=== PATIENT | male | born 1935 | race Caucasian/White ===

== ENCOUNTER 2018-01-05 10:41 | Day surgery (SDC) | payer MEDICARE ==
[2018-01-05] VITALS (8 sets, daily range): BP systolic 97–160; BP diastolic 54–96; PULSE 74–84; RESP 18; TEMP 97.6–98; O2SAT 91–95
[~2018-01-05] VITALS: Ht 177.8 cm; Wt 96.3 kg
[2018-01-05] MEDS ORDERED: IOHEXOL 350 MG/ML 100 ML BTL (for Cath Lab) OTHER ONE (10:42)
[2018-01-05] MEDS ORDERED: MULTTAB67 PO (11:38)
[2018-01-05] MEDS ORDERED: OMEP20TA93 PO (11:38)
[2018-01-05] MEDS ORDERED: CLOTR1%T TOPICAL (11:38)
[2018-01-05] MEDS ORDERED: METR0.7512 TOPICAL (11:38)
[2018-01-05] MEDS ORDERED: SYMB160A INH (11:38)
[2018-01-05] MEDS ORDERED: METO25TA3 PO (11:38)
[2018-01-05] MEDS ORDERED: LIPI80TA PO (11:38)
[2018-01-05] MEDS ORDERED: TYLE325T PO (11:38)
[2018-01-05] MEDS ORDERED: NITR1SUB3 SL (11:38)
[2018-01-05] MEDS ORDERED: GLUC100013 (11:38)
[2018-01-05] MEDS ORDERED: BRIL90TA PO (11:38)
[2018-01-05] MEDS ORDERED: ASPI-516 CHEW (11:38)
[2018-01-05] MEDS ORDERED: LISI20TA PO (11:38)
[2018-01-05 11:39] LABS: AUTOMATED NEUTROPHIL # 7.3 TH/MM3 (1.8-7.7); BASOPHIL # 0.1 TH/MM3 (0-0.2); BASOPHIL % 1.4 % (0.0-2.0); EOSINOPHIL # 0.1 TH/MM3 (0-0.4); HEMATOCRIT 43.7 % (39.0-51.0); HEMOGLOBIN 14.6 GM/DL (13.0-17.0); LYMPHOCYTE # 1.1 TH/MM3 (1.0-4.8); MEAN CELL VOLUME 86.8 FL (80.0-100.0); MEAN CORPUSCULAR HGB CONC 33.4 % (32.0-36.0); MEAN PLATELET VOLUME 8.6 FL (7.0-11.0); MONO % 10.1 % (0.0-8.0); NEUT % 76.5 % (16.0-70.0); PLATELET COUNT 192 TH/MM3 (150-450); RED BLOOD COUNT 5.04 MIL/MM3 (4.50-5.90); RED CELL DISTRIBUTION WIDTH 15.4 % (11.6-17.2); WHITE BLOOD COUNT 9.5 TH/MM3 (4.0-11.0)
[2018-01-05 11:43] LABS: PROTHROMBIN TIME - PATIENT 10.5 SEC (9.8-11.6)
[2018-01-05] MEDS ORDERED: NS 1000P @30 MLS/HR (KVO) IV SCH (12:00)
[2018-01-05 12:12] LABS: BICARBONATE 24.1 MEQ/L (21.0-32.0); CALCIUM 9.7 MG/DL (8.5-10.1); CREATININE 1.25 MG/DL (0.60-1.30)
[2018-01-05 12:45] LABS: OVALOCYTES 1+ (NORMAL)
[2018-01-05 13:28] LABS: BICARBONATE 25.8 MEQ/L (21.0-32.0); CALCIUM 9.3 MG/DL (8.5-10.1); CREATININE 1.1 MG/DL (0.60-1.30)
--- NOTE | 2018-01-05 13:34 | EKG ---
Date Performed: 01/05/2018 Time Performed: 11:22:08 PTAGE: 82 years EKG: Sinus rhythm . Inferior and anterior T wave changes are nonspecific Borderline ECG NO PREVIOUS TRACING DOCTOR: Octavio Arambula Interpretating Date/Time 01/05/2018 13:33:18
[2018-01-05] MEDS ORDERED: MIDAZOLAM HCL 2 MG/2 ML VIAL ONE ×2 (15:38→16:24)
[2018-01-05] MEDS ORDERED: TICAGRELOR 90 MG TAB PO ONE (17:18)
[2018-01-05] MEDS ORDERED: SODIUM CHLOR 0.9% 1000 ML INJ 1,000 ML IV SCH (17:32)
--- NOTE | 2018-01-05 17:35 | CATHPROC ---
[facility] HIS Report Study Information Study Number Admission Scheduled Start Study Start [id number] Jan 05 2018 10:41AM 01/05/2018 Jan 05 2018 3:19PM Study Type [place] Service Left/Possible PCI Cardiac Catheterization Admit Source Facility Department Other [facility] Physician and Clinical Staff Initial Zina Gu Overhead Garage Door Hanger Makenna Hale,MARTA Overhead Garage Door HangerGabrielle Quinonez,MARTA Recorder Piper Canseco,RT(R) Scrub Maddison Herrera,RT(R) X-Ray Stacia Pike ,RT(R) Procedures Performed Procedure Location (Site) Vessel Name Angiogram LV LV Ventricle Coronary Angiograms LCA Left Coronary Coronary Angiograms RCA Right Coronary Drug Eluting Inflatio RCA Mid Right Coronary L Heart Cath PTCA RCA Mid Right Coronary PTCA ADD ON'S Wire insertion Fem Art (right) Femoral Art Equipment Time Chipper Operator Description Size Mfg Part Number Used/Scraped WIRE, BALANCE MIDDLEWEIGHT [id number] 16:14 [employer] 190CM Used 190CM *[id number] WIRE, [place] TORQUE ALLSTAR [id number] 16:26 [employer] 190CM Used 190CM *[id number] TRANSDUCER, TRUWAVE [id number] 15:44 REYES VELAZQUEZ * Used W/STOCKCOCK *[id number] *[id number] [phone] *[id number] *[id number] [id number] *[id number] 17:15 DAIG/ST. KATELYN MEDICAL ANGIOSEAL, FR6 VIP FR 6 Used *[id number] 15:44 MEDLINE INDUSTRIES PACK, CCL CUSTOM * Used *[id number] 15:44 MEDLINE PACER PEN, SKIN DUAL W/ RULER * Used *[id number] 15:43 MEDTRONIC AR MOD DXTERITY CATHETER FR 5 [id number] Used [id number] 16:23 MEDTRONIC BALLOON, 1.5 X 12MM EUPHORA 12MM Used *[id number] 16:18 MEDTRONIC BALLOON, 2.5 X 15MM EUPHORA 15MM Used *[id number] 16:49 MEDTRONIC BALLOON, 3.0 X 15MM EUPHORA 15MM Used *[id number] BALLOON, 3.5 X 15MM NC [id number] 17:04 MEDTRONIC 15MM Used EUPHORA *[id number] 16:47 MEDTRONIC STENT, 3.5 38MM HUMPHREY 3.5 38MM [id number] Used [id number] 16:15 Jewel Toned MEDICAL 30 WINNIE INDEFLATOR Used *[id number] 16:14 Jewel Toned MEDICAL SHEATH, FR6.5 PRELUDE 11CM FR 6.5 038ACT Used *[id number] 15:44 [employer] WIRE, 3MMJ .035 180CM 180CM Used *[id number] PROBE COVER, STERILE [id number] 15:44 [employer] MEDICAL * Used ULTRASOUND W/ GEL *[id number] 15:44 NAMIC MANIFOLD, 4 PORT * Used *[id number] [id number] 15:44 NAMIC TUBING, HIGH PRESSURE 48" 48" Used *[id number] 15:44 NYCOMED OMNIPAQUE, 350 MG, 150ML 150ML [id number] Used 16:15 NYCOMED OMNIPAQUE, 350 MG, 50ML 50ML [id number] Used [id number] 15:44 [facility] BLANKET,WARM AIR CCL * Used *[id number] [id number] 15:44 TERUMO MEDICAL SHEATH, FR5 TERUMO (10CM) FR 5 Used *[id number] 16:56 VASCULAR SOLUTIONS CATHETER, FR6 GUIDELINER FR 6 5536 *[id number] Used Equipment Model, Serial, Lot Number and Expiration Data Description Model Number Serial Number Lot Number Expiration Date ANGIOSEAL, FR6 [facility] [id number] 09-14-2018 AR MOD DXTERITY CATHETER [id number] 03-12-2020 BALLOON, 3.5 X 15MM [place] [id number] 07-09-2019 EUPHORA STENT, 3.5 38MM HUMPHREY [id number] 07-30-2019 History: Current Medications Medication Dosage/Unit Route Frequency Last Date/Time Taken ASA LISINOPRIL Beta Akanksha LIPITOR BRILLINTA History: Allergies Allergy Reaction No Known Allergies History: Risk Factors Family History of Hypertension Dyslipidemia Previous [place] Previous Heart Failure Premature CAD Yes Yes Yes No No Prior Valve Prior PCI Prior CABG Surgery No No No Cerebrovascular Peripheral Artery Chronic Lung On Dialysis Diabetes Disease Disease Disease No No No Yes No History: Symptoms/Diagnosis Selection Items SOB History: Stress Tests Stress or Imaging Studies Performed Yes Standard Exercise Stress Test No Stress Echo No Stress Test SPECT No Stress Test CMR No Cardiac CTA Coronary Calcium Score No No History: Other Disease Selection Items HTN History: Other Current Smoker Method Quit Packs a Day Years Used Pack Years No Cigarettes 45 Years Ago 1 16 16 Labs Hgb (g/dl) Hct (%) WBC (l/cumm) Platelets (thousands) 11.60-17.00 35.00-51.00 4.00-11.00 150.00-450.00 14.6 43.7 9.5 192 Glucose (mg/dl) BUN (mg/dl) Creatinine (mg/dl) BUN:Creatinine (1:x) 74.00-106.00 7.00-18.00 0.50-1.30 10.00-20.00 96 18 1.1 16.4 Na (meq/l) K (meq/l) 136.00-145.00 3.50-5.10 138 4 INR (PTT:PT) 0.90-1.10 1 CPK-MB (ng/ML) 0.50-3.60 Not Drawn Medication Medication Total Dose (Bolus/Oral) Medication Total Dosage/Unit 1% XYLOCAINE 20 mL BRILLINTA 90 mg FENTANYL 200 mcg HEPARIN 9000 units NTG (IC) 200 mcg VERSED 7 mg Medications (Bolus/Oral) Medication Time Given Dosage/Unit Administered By Reason VERSED 01/05/2018 3:42:25 PM 1 mg Makenna Hale 1 mg VERSED given in lab by Makenna Hale, RN in Left Forearm via Peripheral IV. FENTANYL 01/05/2018 3:43:00 PM 25 mcg Makenna Hale 25 mcg FENTANYL given in lab by Makenna Hale, MARTA via Peripheral IV. FENTANYL 01/05/2018 3:44:40 PM 25 mcg Makenna Hale 25 mcg FENTANYL given in lab by Makenna Hale, MARTA via Peripheral IV. VERSED 01/05/2018 3:44:49 PM 1 mg Makenna Hale 1 mg VERSED given in lab by Makenna Hale, MARTA via Peripheral IV. 1% XYLOCAINE 01/05/2018 3:53:46 PM 20 mL Zina Shannon 20 mL 1% XYLOCAINE given in lab by Zina Shannon in Right Groin via Subcutaneous. VERSED 01/05/2018 3:54:16 PM 1 mg Makenna Hale 1 mg VERSED given in lab by Makenna Hale RN via Peripheral IV. FENTANYL 01/05/2018 3:55:25 PM 25 mcg Makenna Hale 25 mcg FENTANYL given in lab by Makenna Hale RN via Peripheral IV. HEPARIN 01/05/2018 4:15:21 PM 7000 units Makenna Hale 7000 units HEPARIN given in lab by Makenna Hale RN via Peripheral IV. VERSED 01/05/2018 4:15:39 PM 1 mg Makenna Hale 1 mg VERSED given in lab by Makenna Hale RN via Peripheral IV. VERSED 01/05/2018 4:17:00 PM 1 mg Jada Haleara 1 mg VERSED given in lab by Makenna Hale RN via Peripheral IV. FENTANYL 01/05/2018 4:17:35 PM 25 mcg Makenna Hale 25 mcg FENTANYL given in lab by Makenna Hale RN via Peripheral IV. FENTANYL 01/05/2018 4:36:00 PM 50 mcg Makenna Hale 50 mcg FENTANYL given in lab by Makenna Hale RN via Peripheral IV. VERSED 01/05/2018 4:49:00 PM 1 mg Makenna Hale 1 mg VERSED given in lab by Makenna Hale RN via Peripheral IV. FENTANYL 01/05/2018 4:50:00 PM 50 mcg Makenna Hale 50 mcg FENTANYL given in lab by Makenna Hale RN via Peripheral IV. HEPARIN 01/05/2018 5:05:50 PM 2000 units Makenna Hale 2000 units HEPARIN given in lab by Makenna Hale RN via Peripheral IV. NTG (IC) 01/05/2018 5:08:47 PM 200 mcg Maddison Herrera 200 mcg NTG (IC) given in lab by Maddison Herrera, RT(R) via Intra-coronary. VERSED 01/05/2018 5:13:49 PM 1 mg Radha Gabrielle 1 mg VERSED given in lab by Gabrielle Garcia, MARTA via Peripheral IV. BRILLINTA 01/05/2018 5:25:57 PM 90 mg Radha Gabrielle 90 mg BRILLINTA given in lab by Gabrielle Garcia, RN in Per mouth via Oral. Medication (Drip) Medication Time Given Dosage/Unit Concentration/Unit Diluent (ml) Solution IV Bolus 01/05/2018 4:06:23 PM 500 mL (Bolus) NaCl .9 500 mL (Bolus) IV Bolus given in lab by Makenna Hale RN via Peripheral IV. Using NaCl .9. IV Solutions 01/05/2018 3:41:05 PM 0 mL (IV) 500 NaCl .9 Patient arrived on IV Solutions in Left Forearm via Peripheral IV. Pump/Drip Flow = 20 ml/hr using Na Cl .9. Initial Case Assessment Cardiovascular HR Rhythm NIBP Chest Pain 78 REG 150/89 0 Edema Present Skin color Skin None Normal Warm Circulatory - Right Pulses Dorsalis Pedis Femoral 2 2 Scale (0,1,2,3,4,d) Circulatory - Left Pulses Dorsalis Pedis Femoral 2 2 Scale (0,1,2,3,4,d) Circulatory - Lower Extremities Color Lower Right Color Lower Left Normal Normal Neurological State Oriented to time-place- Alert Moves all extremities person Respiration - General Respiration Rate SpO2 (%) (B/min) 26 95 Final Case Assessment Cardiovascular HR Rhythm NIBP Chest Pain 81 reg 123/80 0 Edema Present Skin color Skin None Normal Warm Circulatory - Right Pulses Dorsalis Pedis Femoral 2 2 Scale (0,1,2,3,4,d) Circulatory - Left Pulses Dorsalis Pedis Femoral 2 2 Scale (0,1,2,3,4,d) Circulatory - Lower Extremities Color Lower Right Color Lower Left Normal Normal Neurological State Oriented to time-place- Alert Moves all extremities person Respiration - General Respiration Rate SpO2 (%) O2 (lpm) (B/min) 22 95 2 Chronological Log Time Study Chronological Log 15:30:04 Patient arrived via Bed. 15:30:05 Patient Name, D.O.B, / Armband Verified By R.N. 15:30:06 Consent signed by the physician and the patient and verified by the [facility] staff. 15:30:07 Pre-op and post- op instructions given; patient acknowledges understanding of instructions. 15:30:21 MD arrived. Vitals capture started with the following parameters, Patient=Adult, Interval=5 min, Initial Pr jihzpm=631 mmHg, 15:33:53 Deflation Rate=5 mmHg, Cuff placed on RIGHT Arm 15:34:45 HR=89 bpm, WECO=512/87 mmhg, SpO2=95 %, Resp=20 B/min, Pain=0, Tiffani=10, Hoffman=2 15:39:40 HR=80 bpm, SMON=735/89 mmhg, SpO2=95.0 %, Resp=24 B/min, Pain=0, Tiffani=10, Hoffman=2 15:40:39 Patient has been NPO for More than 6Hrs. 15:40:43 Skin Breakdown-NONE 15:40:54 Patient Warmer Placed on the Table. 15:40:56 A # 20 IV was noted in the Forearm (left). Grade = 0 15:41:05 Patient arrived on IV Solutions in Left Forearm via Peripheral IV. Pump/Drip Flow = 20 ml/h r using NaCl .9. 15:41:25 History and physical on the chart or being dictated. Assessment: Initial Case, HR=78 BPM, Rhythm=REG, QBHV=380/89 mmhg, Chest Pain=0, Edema=None, Color=Normal, Skin = Warm Right Pulses: Wei Ped=2, Femoral=2 Left Pulses: Wei Ped=2, Femoral=2 15:41:26 Lower Right Extremities: Color=Normal Lower Left Extremities: Color=Normal Neurological: State=Alert, Ox3, ROD Respiration: Resp=26 B/min, SpO2=95 % 15:42:08 Bilateral groins prepped with 2% chlorhexidine, and draped after a 3 minute waiting time. 15:42:14 Pressure channel 1 zeroed. 15:42:25 1 mg VERSED given in lab by Makenna Hale RN in Left Forearm via Peripheral IV. 15:43:00 25 mcg FENTANYL given in lab by Makenna Hale, MARTA via Peripheral IV. 15:43:18 History and physical on the chart or being dictated. 15:44:39 HR=79 bpm, WWWK=503/79 mmhg, SpO2=95.0 %, Resp=24 B/min, Pain=0, Tiffani=10, Hoffman=2 15:44:40 25 mcg FENTANYL given in lab by Makenna Hale, MARTA via Peripheral IV. 15:44:49 1 mg VERSED given in lab by Makenna Hale, MARTA via Peripheral IV. 15:49:40 HR=78 bpm, TQAZ=034/67 mmhg, SpO2=95.0 %, Resp=22 B/min, Pain=0, Tiffani=10, Hoffman=2 15:52:32 Reference ECG taken Time Out. Correct patient, correct procedure, correct physician, power injector loaded with con trast with surgical team 15:53:25 present. Time Out Concurred by MD and individual staff in procedure. 15:53:37 Case Start 15:53:40 Verbal Stimulation=2 Physical Stimulation=2 Airway=2 Respiration=2 TOTAL=8. (0=absent, 1=li mited, 2=present) 15:53:46 20 mL 1% XYLOCAINE given in lab by Zina Shannon in Right Groin via Subcutaneous. 15:54:16 1 mg VERSED given in lab by Makenna Hale, RN via Peripheral IV. 15:54:37 HR=80 bpm, BNWS=685/82 mmhg, SpO2=97.0 %, Resp=24 B/min, Pain=0, Tiffani=10, Hoffman=2 15:55:25 25 mcg FENTANYL given in lab by Makenna Hale, RN via Peripheral IV. 15:55:29 Access site was Right Femoral Artery with ultrasound device 15:55:49 A wire was inserted via Fem Art (right). 15:55:52 A SHEATH, FR5 TERUMO (10CM) FR 5 was advanced into the Fem Art (right) using the Percutaneo us technique. A PIGTAIL ANG. INFINITI CATHETER FR 5 was advanced over a wire. OMNIPAQUE, 350 MG, 150ML 150ML was used 15:58:02 for injections. Recorded Pressure: LV, HR=89, Condition=Condition 1 15:59:10 (Left Ventricle) LV 147/9/16 15:59:25 The LV was injected at 10 cc/sec for a total of 30. OMNIPAQUE, 350 MG, 150ML 150ML used. 15:59:42 HR=75 bpm, OJOC=842/72 mmhg, SpO2=94.0 %, Resp=24 B/min, Pain=0, Tiffani=10, Hoffman=2 Recorded Pressure: LV, HR=78, Condition=Condition 1 16:01:56 (Left Ventricle) LV 145/8/13 Recorded Pressure: LV, Ao, HR=80, Condition=Condition 1 16:02:18 (Left Ventricle) LV 140/6/14, (Aorta) Ao 139/61/100 16:02:36 Catheter was removed After removing the current catheter a JL 4.0 INFINITI CATHETER FR 5 was advanced over a WIRE, 3 MMJ .035 180CM 16:02:59 180CM. 16:04:37 The LCA was injected and visualized at various angles. OMNIPAQUE, 350 MG, 150ML 150ML used . 16:04:39 HR=77 bpm, ZVMX=011/76 mmhg, SpO2=96.0 %, Resp=23 B/min, Pain=0, Tiffani=10, Hoffman=2 Recorded Pressure: Ao, HR=77, Condition=Condition 1 16:04:44 (Aorta) Ao 130/71/95 16:06:23 500 mL (Bolus) IV Bolus given in lab by Makenna Hale RN via Peripheral IV. Using NaCl . 9. After removing the current catheter a AR MOD DXTERITY CATHETER FR 5 was advanced over a WIRE, 3 MMJ .035 16:08:38 180CM 180CM. 16:09:37 The RCA was injected and visualized at various angles. OMNIPAQUE, 350 MG, 150ML 150ML used . 16:09:40 HR=81 bpm, WTCD=998/78 mmhg, SpO2=96.0 %, Resp=22 B/min, Pain=0, Tiffani=10, Hoffman=2 16:13:20 Catheter was removed 16:14:29 OMNIPAQUE, 350 MG, 50ML 50ML and 30 WININE INDEFLATOR added. 16:14:43 HR=82 bpm, NLJI=350/76 mmhg, SpO2=96.0 %, Resp=22 B/min, Pain=0, Tiffani=10, Hoffman=2 A SHEATH, FR6.5 PRELUDE 11CM FR 6.5 was exchanged in the Fem Art (right). This was necessary in order to 16:14:43 accomodate a larger catheter. 16:15:21 7000 units HEPARIN given in lab by Makenna Hale, MARTA via Peripheral IV. 16:15:39 1 mg VERSED given in lab by Makenna Hale, MARTA via Peripheral IV. 16:15:43 A AR 1 GUIDE CATHETER FR 6 was advanced over a wire. OMNIPAQUE, 350 MG, 150ML 150ML was use d for injections. 16:16:42 A WIRE, BALANCE MIDDLEWEIGHT 190CM 190CM was inserted via Fem Art (right). 16:17:00 1 mg VERSED given in lab by Makenna Hale, RN via Peripheral IV. 16:17:35 25 mcg FENTANYL given in lab by Makenna Hale, RN via Peripheral IV. 16:17:49 Interventional wire has crossed the lesion A BALLOON, 2.5 X 15MM EUPHORA 15MM was inserted over WIRE, BALANCE MIDDLEWEIGHT 190CM 190CM via the 16:19:11 RCA Mid. 16:19:42 HR=81 bpm, WTAO=356/79 mmhg, SpO2=95.0 %, Resp=24 B/min, Pain=0, Tiffani=10, Hoffman=2 16:21:18 Balloon Removed. A BALLOON, 1.5 X 12MM EUPHORA 12MM was inserted over WIRE, BALANCE MIDDLEWEIGHT 190CM 190CM via the 16:22:21 RCA Mid. 16:23:31 Activated Clotting Time Drawn 16:25:14 Balloon Removed. 16:25:16 HR=80 bpm, EDLA=670/77 mmhg, SpO2=97.0 %, Resp=22 B/min, Pain=0, Tiffani=10, Hoffman=2 16:25:46 A WIRE, HI TORQUE ALLSTAR 190CM 190CM was inserted via Fem Art (right). 16:27:16 ACT (Normal Range 90-180) = 245 A BALLOON, 1.5 X 12MM EUPHORA 12MM was inserted over WIRE, HI TORQUE ALLSTAR 190CM 190CM via th e RCA 16:27:28 Mid. 16:29:34 Balloon Removed. 16:29:40 HR=78 bpm, DCHF=943/79 mmhg, SpO2=97.0 %, Resp=20 B/min, Pain=0, Tiffani=10, Hoffman=2 16:30:04 both Wires removed After removing the current catheter a AL 1 GUIDE CATHETER FR 6 was advanced over a WIRE, 3MMJ . 035 180CM 16:30:27 180CM. 16:33:13 A WIRE, HI TORQUE ALLSTAR 190CM 190CM was inserted via Fem Art (right). 16:33:51 Interventional wire has crossed the lesion A BALLOON, 1.5 X 12MM EUPHORA 12MM was inserted over WIRE, HI TORQUE ALLSTAR 190CM 190CM via th e RCA 16:34:21 Mid. 16:34:41 HR=76 bpm, PYWD=014/83 mmhg, SpO2=97.0 %, Resp=20 B/min, Pain=0, Tiffani=10, Hoffman=2 A BALLOON, 1.5 X 12MM EUPHORA 12MM over a WIRE, HI TORQUE ALLSTAR 190CM 190CM in the RCA Mid wa s 16:35:26 inflated using a 30 WINNIE INDEFLATOR at 17 winnie for 16 sec. A BALLOON, 1.5 X 12MM EUPHORA 12MM over a WIRE, HI TORQUE ALLSTAR 190CM 190CM in the RCA Mid wa s 16:35:52 inflated using a 30 WINNIE INDEFLATOR at 17 winnie for 10 sec. 16:36:00 50 mcg FENTANYL given in lab by Makenna Hale, MARTA via Peripheral IV. A BALLOON, 1.5 X 12MM EUPHORA 12MM over a WIRE, HI TORQUE ALLSTAR 190CM 190CM in the RCA Mid wa s 16:36:09 inflated using a 30 WINNIE INDEFLATOR at 17 winnie for 10 sec. A BALLOON, 1.5 X 12MM EUPHORA 12MM over a WIRE, HI TORQUE ALLSTAR 190CM 190CM in the RCA Mid wa s 16:36:28 inflated using a 30 WINNIE INDEFLATOR at 17 winnie for 7 sec. A BALLOON, 1.5 X 12MM EUPHORA 12MM over a WIRE, HI TORQUE ALLSTAR 190CM 190CM in the RCA Mid wa s 16:36:50 inflated using a 30 WINNIE INDEFLATOR at 17 winnie for 8 sec. A BALLOON, 1.5 X 12MM EUPHORA 12MM over a WIRE, HI TORQUE ALLSTAR 190CM 190CM in the RCA Mid wa s 16:37:05 inflated using a 30 WINNIE INDEFLATOR at 17 winnie for 8 sec. 16:37:28 Balloon Removed. 16:37:36 The RCA was injected and visualized at various angles. OMNIPAQUE, 350 MG, 150ML 150ML used . A BALLOON, 2.5 X 15MM EUPHORA 15MM was inserted over WIRE, HI TORQUE ALLSTAR 190CM 190CM via th e RCA 16:38:29 Mid. A BALLOON, 2.5 X 15MM EUPHORA 15MM over a WIRE, HI TORQUE ALLSTAR 190CM 190CM in the RCA Mid wa s 16:39:08 inflated using a 30 WINNIE INDEFLATOR at 17 winnie for 15 sec. A BALLOON, 2.5 X 15MM EUPHORA 15MM over a WIRE, HI TORQUE ALLSTAR 190CM 190CM in the RCA Mid wa s 16:39:33 inflated using a 30 WINNIE INDEFLATOR at 17 winnie for 16 sec. 16:39:44 HR=80 bpm, XVRU=198/86 mmhg, SpO2=98.0 %, Resp=27 B/min, Pain=0, Tiffani=10, Hoffman=2 A BALLOON, 2.5 X 15MM EUPHORA 15MM over a WIRE, HI TORQUE ALLSTAR 190CM 190CM in the RCA Mid wa s 16:40:03 inflated using a 30 WINNIE INDEFLATOR at 17 winnie for 11 sec. A BALLOON, 2.5 X 15MM EUPHORA 15MM over a WIRE, HI TORQUE ALLSTAR 190CM 190CM in the RCA Mid wa s 16:40:30 inflated using a 30 WINNIE INDEFLATOR at 17 winnie for 10 sec. A BALLOON, 2.5 X 15MM EUPHORA 15MM over a WIRE, HI TORQUE ALLSTAR 190CM 190CM in the RCA Mid wa s 16:40:46 inflated using a 30 WINNIE INDEFLATOR at 17 winnie for 6 sec. 16:41:03 The RCA was injected and visualized at various angles. OMNIPAQUE, 350 MG, 150ML 150ML used . A BALLOON, 2.5 X 15MM EUPHORA 15MM over a WIRE, HI TORQUE ALLSTAR 190CM 190CM in the RCA Mid wa s 16:42:01 inflated using a 30 WINNIE INDEFLATOR at 17 winnie for 25 sec. A BALLOON, 2.5 X 15MM EUPHORA 15MM over a WIRE, HI TORQUE ALLSTAR 190CM 190CM in the RCA Mid wa s 16:42:37 inflated using a 30 WINNIE INDEFLATOR at 17 winnie for 8 sec. A BALLOON, 2.5 X 15MM EUPHORA 15MM over a WIRE, HI TORQUE ALLSTAR 190CM 190CM in the RCA Mid wa s 16:42:54 inflated using a 30 WINNIE INDEFLATOR at 17 winnie for 15 sec. 16:43:17 Balloon Removed. 16:44:45 HR=78 bpm, WYEE=170/94 mmhg, SpO2=98.0 %, Resp=17 B/min, Pain=0, Tiffani=10, Hoffman=2 A STENT, 3.5 38MM HUMPHREY 3.5 38MM was advanced through a AL 1 GUIDE CATHETER FR 6 over a WIRE, HI TORQUE 16:45:25 ALLSTAR 190CM 190CM. 16:46:52 Delivery device removed 16:46:53 Stent not deployed. Stent removed and intact. 16:49:00 1 mg VERSED given in lab by Makenna Hale, MARTA via Peripheral IV. A BALLOON, 3.0 X 15MM EUPHORA 15MM was inserted over WIRE, HI TORQUE ALLSTAR 190CM 190CM via th e RCA 16:49:09 Mid. 16:49:53 HR=77 bpm, FXDW=476/85 mmhg, SpO2=96.0 %, Resp=16 B/min, Pain=0, Tiffani=10, Hoffman=2 16:50:00 50 mcg FENTANYL given in lab by Makenna Hale, MARTA via Peripheral IV. A BALLOON, 3.0 X 15MM EUPHORA 15MM over a WIRE, HI TORQUE ALLSTAR 190CM 190CM in the RCA Mid wa s 16:50:05 inflated using a 30 WINNIE INDEFLATOR at 17 winnie for 20 sec. A BALLOON, 3.0 X 15MM EUPHORA 15MM over a WIRE, HI TORQUE ALLSTAR 190CM 190CM in the RCA Mid wa s 16:50:31 inflated using a 30 WINNIE INDEFLATOR at 17 winnie for 20 sec. A BALLOON, 3.0 X 15MM EUPHORA 15MM over a WIRE, HI TORQUE ALLSTAR 190CM 190CM in the RCA Mid wa s 16:50:50 inflated using a 30 WINNIE INDEFLATOR at 17 winnie for 12 sec. A BALLOON, 3.0 X 15MM EUPHORA 15MM over a WIRE, HI TORQUE ALLSTAR 190CM 190CM in the RCA Mid wa s 16:51:14 inflated using a 30 WINNIE INDEFLATOR at 17 winnie for 15 sec. A BALLOON, 3.0 X 15MM EUPHORA 15MM over a WIRE, HI TORQUE ALLSTAR 190CM 190CM in the RCA Mid wa s 16:51:30 inflated using a 30 WINNIE INDEFLATOR at 17 winnie for 18 sec. A BALLOON, 3.0 X 15MM EUPHORA 15MM over a WIRE, HI TORQUE ALLSTAR 190CM 190CM in the RCA Mid wa s 16:52:06 inflated using a 30 WINNIE INDEFLATOR at 17 winnie for 10 sec. 16:52:19 Balloon Removed. A STENT, 3.5 38MM HUMPHREY 3.5 38MM was advanced through a AL 1 GUIDE CATHETER FR 6 over a WIRE, HI TORQUE 16:52:44 ALLSTAR 190CM 190CM. 16:54:09 Stent not deployed. Stent removed and intact. 16:54:48 HR=76 bpm, EGRK=159/76 mmhg, SpO2=97.0 %, Resp=24 B/min, Pain=0, Tiffani=10, Hoffman=2 A CATHETER, FR6 GUIDELINER FR 6 was advanced over a wire. OMNIPAQUE, 350 MG, 150ML 150ML was us ed for 16:56:18 injections. 16:59:51 HR=73 bpm, PPEY=490/77 mmhg, SpO2=97.0 %, Resp=20 B/min, Pain=0, Tiffani=10, Hoffman=2 A STENT, 3.5 38MM HUMPHREY 3.5 38MM was advanced through a CATHETER, FR6 GUIDELINER FR 6 over a WIR E, HI 16:59:55 TORQUE ALLSTAR 190CM 190CM. 17:00:35 guide liner Catheter was removed A STENT, 3.5 38MM HUMPHREY 3.5 38MM was deployed using a 30 WINNIE INDEFLATOR at 12 atmospheres for 20 seconds in 17:01:16 the RCA Mid. 17:02:44 The RCA was injected and visualized at various angles. OMNIPAQUE, 350 MG, 150ML 150ML used . A BALLOON, 3.5 X 15MM NC EUPHORA 15MM was inserted over WIRE, HI TORQUE ALLSTAR 190CM 190CM via the 17:04:50 RCA Mid. A BALLOON, 3.5 X 15MM NC EUPHORA 15MM over a WIRE, HI TORQUE ALLSTAR 190CM 190CM in the RCA Mid was 17:05:08 inflated using a 30 WINNIE INDEFLATOR at 15 winnie for 16 sec. 17:05:22 HR=77 bpm, ABVA=649/91 mmhg, SpO2=98.0 %, Resp=22 B/min, Pain=0, Tiffani=10, Hoffman=2 17:05:50 2000 units HEPARIN given in lab by Makenna Hale, MARTA via Peripheral IV. A BALLOON, 3.5 X 15MM NC EUPHORA 15MM over a WIRE, HI TORQUE ALLSTAR 190CM 190CM in the RCA Mid was 17:06:36 inflated using a 30 WINNIE INDEFLATOR at 18 winnie for 16 sec. A BALLOON, 3.5 X 15MM NC EUPHORA 15MM over a WIRE, HI TORQUE ALLSTAR 190CM 190CM in the RCA Mid was 17:07:05 inflated using a 30 WINNIE INDEFLATOR at 18 winnie for 16 sec. A BALLOON, 3.5 X 15MM NC EUPHORA 15MM over a WIRE, HI TORQUE ALLSTAR 190CM 190CM in the RCA Mid was 17:07:20 inflated using a 30 WINNIE INDEFLATOR at 18 winnie for 14 sec. A BALLOON, 3.5 X 15MM NC EUPHORA 15MM over a WIRE, HI TORQUE ALLSTAR 190CM 190CM in the RCA Mid was 17:07:37 inflated using a 30 WINNIE INDEFLATOR at 18 winnie for 14 sec. 17:08:13 Balloon Removed. 17:08:47 200 mcg NTG (IC) given in lab by Maddison Herrera RT(R) via Intra-coronary. 17:09:11 The RCA was injected and visualized at various angles. OMNIPAQUE, 350 MG, 150ML 150ML used . 17:09:51 HR=86 bpm, QPAT=022/81 mmhg, SpO2=97.0 %, Resp=23 B/min, Pain=0, Tiffani=10, Hoffman=2 The RCA was injected and visualized at various angles. OMNIPAQUE, 350 MG, 150ML 150ML used. cat heter backed 17:11:33 out of rca 17:12:18 Wire removed 17:13:27 The RCA was injected and visualized at various angles. OMNIPAQUE, 350 MG, 150ML 150ML used . 17:13:49 1 mg VERSED given in lab by Gabrielle Garcia, MARTA via Peripheral IV. 17:14:16 An injection in the Fem Art (right) was made through the SHEATH, FR6.5 PRELUDE 11CM FR 6.5. 17:14:46 HR=81 bpm, NRMN=411/80 mmhg, SpO2=94.0 %, Resp=28 B/min, Pain=0, Tiffani=10, Hoffman=2 Assessment: Final Case, HR=81 BPM, Rhythm=reg, TEEW=568/80 mmhg, Chest Pain=0, Edema=None, Reading r=Normal, Skin = Warm Right Pulses: Wei Ped=2, Femoral=2 Left Pulses: Wei Ped=2, Femoral=2 17:14:55 Lower Right Extremities: Color=Normal Lower Left Extremities: Color=Normal Neurological: State=Alert, Ox3, ROD Respiration: Resp=22 B/min, SpO2=95 %, O2=2 lpm 17:15:25 Catheter(s) removed without difficulty 17:15:29 ANGIOSEAL, FR6 VIP FR 6 placement in the Fem Art (right) 17:17:46 Sterile dressing applied to site 17:17:47 No case complications noted. 17:17:48 Cine recording checked. 17:17:50 Bedside Report will be given. 17:17:51 Implantable Device card placed in patient's chart. 17:17:59 A Left Heart Cath was performed. 17:18:02 Clinical correlaton risk stratification. 17:19:45 HR=75 bpm, PSYZ=746/80 mmhg, SpO2=94.0 %, Resp=21 B/min, Pain=0, Tiffani=10, Hoffman=2 17:24:11 Case End 17:24:44 HR=74 bpm, EMVF=310/83 mmhg, SpO2=96.0 %, Resp=21 B/min, Pain=0, Tiffani=10, Hoffman=2 17:25:57 90 mg BRILLINTA given in lab by Gabrielle Garcia, RN in Per mouth via Oral. 17:29:23 Vitals capture stopped. End Study - Contrast Media Used In Study Contrast Total Opened (mL) Total Used (mL) Total Wasted (mL) Omnipaque 200 200 0 End Study - Maximum Contrast Load Max Contrast Load (mL) 445.0 End Study - Radiation Exposure Fluoro Time (minutes) 22.8 End Study - Sheaths Sheaths Pulled By Sheath Hold Time (min) Zina Shannon End Study - Patient Disposition Complications Transferred To Interventional Outcome No Outpatient Bed successful
[2018-01-05] MEDS ORDERED: ACETAMINOPHEN 325 MG TAB PO PRN (17:45)
[2018-01-05] MEDS ORDERED: TEMAZEPAM 15 MG CAP PO PRN (17:45)
[2018-01-05] MEDS: TICAGRELOR 90 MG TAB PO SCH (18:51)
[2018-01-05] MEDS: METOPROLOL TARTRATE 25 MG TAB PO SCH (20:08)
[2018-01-05] MEDS: BUDESONIDE-FORMOTEROL 160/4.5 MCG INHALER INH SCH (20:09)
[2018-01-05] MEDS ORDERED: ATORVASTATIN 80 MG TAB PO SCH (21:00)
--- NOTE | 2018-01-05 23:18 | MA ---
cc: ELICIA MCKEON MD DATE: 01/05/2018 INDICATIONS Unstable angina, class III angina, CAD. PROCEDURE PERFORMED 1. Retrograde left heart catheterization with left ventriculography and selective coronary angiography. 2. Angioplasty and stenting of the mid-right coronary artery. 3. Moderate sedation. ACCESS SITE Right femoral artery. EQUIPMENT USED 5 [place] pigtail catheter, 5 [place] JL4 and AR modified coronary artery catheters. AL-1 guide, [place]Star wire,Guideliner for stent placement, 1.5, 2.5 and 3.0 balloons for predilatation, 3.5 x 38 mm [place] drug-eluting stent at 12 atmospheres, post dilated with 3.5 x 15 mm noncompliant balloon at 18 atmospheres. MEDICATIONS Versed IV Fentanyl IV Heparin IV Nitroglycerin IC Brilinta 90 milligrams p.o. CONTRAST Omnipaque 200 cc. COMPLICATIONS None. BLOOD LOSS: Less than 10 cc. METHOD OF HEMOSTASIS Angio-Seal closure RESULTS HEMODYNAMICS Heart rate 77 beats per minute. Left ventricular end-diastolic pressure 6 mmHg. Left ventricle 135/6. Aorta 135/71/65. LEFT VENTRICULOGRAPHY Left ventricular ejection fraction 65%. Wall motion normal. No mitral regurgitation. CORONARY ANGIOGRAPHY The left main coronary artery is patent. Left anterior descending artery, patent. D1 patent. Ramus intermediate patent. Left circumflex artery is a nondominant vessel. There is 60% stenosis in the mid portion. OM1 is patent. Right coronary artery is a large dominant vessel with 95 and 80% sequential stenosis in the midportion. This vessel is heavily calcified. Lesion length 28 mm, pre LEVON flow III, post LEVON flow III, post stenosis zero. This is a type C lesion. Post intervention angiography has excellent patency of the stented segment and no evidence of dissection, thrombosis or embolization. DIAGNOSIS: 1. Severe coronary artery disease with 95% stenosis of the mid right coronary artery. 2. Overall preserved left ventricular systolic function. 3. Successful angioplasty and stenting of the right coronary artery. 4. Infrarenal abdominal aortic aneurysm. DISPOSITION Mr. Anton will be monitored on telemetry after his procedure. We will continue Brilinta and baby aspirin for at least 1 year. We will also continue modification of his cardiac risk factors. I will see him back for followup in our office after discharge. MD LILIANE Celis /5:26 PM /10:57 PM MTDLen
[2018-01-06] VITALS (11 sets, daily range): BP systolic 138–142; BP diastolic 70–75; PULSE 67–82; RESP 18; TEMP 97.6–98; O2SAT 95–96
[2018-01-06 04:16] LABS: AUTOMATED NEUTROPHIL # 5.5 TH/MM3 (1.8-7.7); BASOPHIL % 0.3 % (0.0-2.0); EOSINOPHIL # 0.1 TH/MM3 (0-0.4); EOSINOPHIL % 1.4 % (0.0-4.0); HEMATOCRIT 38.6 % (39.0-51.0); LYMPH % 9.9 % (9.0-44.0); LYMPHOCYTE # 0.7 TH/MM3 (1.0-4.8); MEAN CELL VOLUME 86.3 FL (80.0-100.0); MEAN CORPUSCULAR HEMOGLOBIN 29.1 PG (27.0-34.0); MEAN CORPUSCULAR HGB CONC 33.8 % (32.0-36.0); MEAN PLATELET VOLUME 8.2 FL (7.0-11.0); MONO % 8.6 % (0.0-8.0); MONOCYTE # 0.6 TH/MM3 (0-0.9); NEUT % 79.8 % (16.0-70.0); PLATELET COUNT 149 TH/MM3 (150-450); RED BLOOD COUNT 4.47 MIL/MM3 (4.50-5.90); RED CELL DISTRIBUTION WIDTH 15.1 % (11.6-17.2); WHITE BLOOD COUNT 6.9 TH/MM3 (4.0-11.0)
[2018-01-06 04:31] LABS: BICARBONATE 26.8 MEQ/L (21.0-32.0); BLOOD UREA NITROGEN 18 MG/DL (7-18); CALCIUM 8.7 MG/DL (8.5-10.1); CHLORIDE 106 MEQ/L (98-107); CHOLESTEROL 116 MG/DL (120-200); CREATININE 1.19 MG/DL (0.60-1.30); GLOMERULAR FILTRATION RATE 59 ML/MIN (>89); GLUCOSE,RANDOM 93 MG/DL (74-106); SODIUM (NA) 140 MEQ/L (136-145)
[2018-01-06 04:33] LABS: CHOLESTEROL/ HDL RATIO 2.71 RATIO; HDL CHOLESTEROL 42.7 MG/DL (40.0-60.0); LDL CHOLESTEROL 51 MG/DL (0-99); TRIGLYCERIDES 111 MG/DL (42-150)
[2018-01-06] MEDS: TICAGRELOR 90 MG TAB PO SCH (05:18)
--- NOTE | 2018-01-06 08:14 | PD.CARD.PN ---
Subjective Subjective Remarks No CP or SOB, feels well Objective Medications Current Medications Medications (Trade) Dose Ordered Sig/Mars Route Start Time Stop Time Status Last Admin Sodium Chloride 1,000 ml @ 30 mls/hr Q24H IV 01/05/18 12:00 (Aspirin Chew) 81 mg DAILY CHEW 01/06/18 09:00 (Lipitor) 80 mg HS PO 01/05/18 21:00 01/05/18 20:08 (Symbicort 160-4.5 Mcg Inh) 2 puff Q12HR INH 01/05/18 21:00 (Lopressor) 25 mg BID PO 01/05/18 21:00 01/05/18 20:08 (Brilinta) 90 mg Q12H PO 01/05/18 18:00 01/06/18 05:18 (Tylenol) 325 mg Q4H PRN PO 01/05/18 17:45 01/05/18 20:08 (Restoril) 15 mg HS PRN PO 01/05/18 17:45 01/05/18 22:53 (Theragran) 1 tab DAILY PO 01/06/18 09:00 (Protonix) 20 mg DAILY PO 01/06/18 09:00 (Prinivil) 20 mg DAILY PO 01/06/18 09:00 (Hydrodiuril) 12.5 mg DAILY PO 01/06/18 09:00 Vital Signs / I&O Vital Signs Date Time Temp Pulse Resp B/P (MAP) Pulse Ox O2 Delivery O2 Flow Rate FiO2 01/06/18 06:00 79 01/06/18 05:00 82 01/06/18 04:00 72 01/06/18 03:15 97.6 76 18 142/75 (97) 95 01/06/18 03:00 70 01/06/18 02:00 70 01/06/18 01:00 67 01/06/18 00:00 73 01/05/18 23:00 98.0 83 18 149/79 (102) 93 01/05/18 23:00 82 01/05/18 22:00 78 01/05/18 21:00 76 01/05/18 20:00 80 01/05/18 19:30 84 18 145/81 (102) 94 01/05/18 19:00 74 01/05/18 17:45 97.6 76 18 97/54 (68) 91 01/05/18 11:18 97.6 80 18 160/96 (117) 95 I/O 01/05/18 01/05/18 01/05/18 01/06/18 01/06/18 01/06/18 07:00 15:00 23:00 07:00 15:00 23:00 Intake Total 480 ml Output Total 650 ml Balance -170 ml Intake Oral 480 ml Output Urine Total 650 ml # Voids 1 # Bowel Movements 0 Physical Exam GENERAL: In NAD SKIN: Warm and dry. HEAD: Normocephalic. EYES: No scleral icterus. No injection or drainage. NECK: Supple, trachea midline. No JVD or lymphadenopathy. CARDIOVASCULAR: Regular rate and rhythm without murmurs, gallops, or rubs. RESPIRATORY: Breath sounds equal bilaterally. No accessory muscle use. GASTROINTESTINAL: Abdomen soft, non-tender, nondistended. MUSCULOSKELETAL: No cyanosis, or edema. Groin stable Laboratory Laboratory Tests Test 01/05/18 11:10 01/05/18 12:15 01/06/18 03:31 White Blood Count 9.5 TH/MM3 6.9 TH/MM3 Red Blood Count 5.04 MIL/MM3 4.47 MIL/MM3 Hemoglobin 14.6 GM/DL 13.0 GM/DL Hematocrit 43.7 % 38.6 % Mean Corpuscular Volume 86.8 FL 86.3 FL Mean Corpuscular Hemoglobin 29.0 PG 29.1 PG Mean Corpuscular Hemoglobin Concent 33.4 % 33.8 % Red Cell Distribution Width 15.4 % 15.1 % Platelet Count 192 TH/MM3 149 TH/MM3 Mean Platelet Volume 8.6 FL 8.2 FL Neutrophils (%) (Auto) 76.5 % 79.8 % Lymphocytes (%) (Auto) 11.0 % 9.9 % Monocytes (%) (Auto) 10.1 % 8.6 % Eosinophils (%) (Auto) 1.0 % 1.4 % Basophils (%) (Auto) 1.4 % 0.3 % Neutrophils # (Auto) 7.3 TH/MM3 5.5 TH/MM3 Lymphocytes # (Auto) 1.1 TH/MM3 0.7 TH/MM3 Monocytes # (Auto) 1.0 TH/MM3 0.6 TH/MM3 Eosinophils # (Auto) 0.1 TH/MM3 0.1 TH/MM3 Basophils # (Auto) 0.1 TH/MM3 0.0 TH/MM3 CBC Comment AUTO DIFF DIFF FINAL Differential Comment AUTO DIFF CONFIRMED Platelet Estimate NORMAL Platelet Morphology Comment NORMAL Ovalocytes 1+ Prothrombin Time 10.5 SEC Prothromb Time International Ratio 1.0 RATIO Activated Partial Thromboplast Time 22.5 SEC Blood Urea Nitrogen 18 MG/DL 18 MG/DL 18 MG/DL Creatinine 1.25 MG/DL 1.10 MG/DL 1.19 MG/DL Random Glucose 103 MG/DL 96 MG/DL 93 MG/DL Calcium Level 9.7 MG/DL 9.3 MG/DL 8.7 MG/DL Sodium Level 137 MEQ/L 138 MEQ/L 140 MEQ/L Potassium Level 5.4 MEQ/L 4.0 MEQ/L 4.2 MEQ/L Chloride Level 104 MEQ/L 105 MEQ/L 106 MEQ/L Carbon Dioxide Level 24.1 MEQ/L 25.8 MEQ/L 26.8 MEQ/L Anion Gap 9 MEQ/L 7 MEQ/L 7 MEQ/L Estimat Glomerular Filtration Rate 55 ML/MIN 64 ML/MIN 59 ML/MIN Total Creatine Kinase 132 U/L Creatine Kinase MB 6.3 NG/ML Triglycerides Level 111 MG/DL Cholesterol Level 116 MG/DL LDL Cholesterol 51 MG/DL HDL Cholesterol 42.7 MG/DL Cholesterol/HDL Ratio 2.71 RATIO Assessment and Plan Problem List: (1) Unstable angina ICD Codes: I20.0 - Unstable angina (2) CAD (coronary artery disease) ICD Codes: I25.10 - Atherosclerotic heart disease of [place] coronary artery without angina pectoris (3) Stented coronary artery ICD Codes: Z95.5 - Presence of coronary angioplasty implant and graft Assessment and Plan RCA stenting yest. No angina or CHF. Groin stable. Continue Brilinta, baby ASA, metoprolol, high dose atorvastatin. DC home. F/u as outpt. Zina Shannon MD Jan 06, 2018 08:14
--- NOTE | 2018-01-06 08:15 | EKG ---
Date Performed: 01/05/2018 Time Performed: 18:44:02 PTAGE: 82 years EKG: Sinus rhythm Prolonged QT interval Inferior infarct - age undetermined Ant/septal and lateral T wave changes are nonspecific Abnormal ECG Since the prior tracing, there has been no significant change DOCTOR: Nette De La Rosa Interpretating Date/Time 01/06/2018 08:12:13
[2018-01-06] MEDS ORDERED: LISINOPRIL 20 MG TAB PO SCH (09:00)
[2018-01-06] MEDS ORDERED: HYDROCHLOROTHIAZIDE 25 MG TAB PO SCH (09:00)
[2018-01-06] MEDS ORDERED: ASPIRIN 81 MG CHEW TAB CHEW SCH (09:00)
[2018-01-06] MEDS ORDERED: NON-FORMULARY DRUG (Omeprazole 20 MG) PO SCH (09:00)
[2018-01-06] MEDS ORDERED: NON-FORMULARY DRUG (Multiple Vitamin 1 TAB) PO SCH (09:00)
[2018-01-06] MEDS ORDERED: PANTOPRAZOLE SOD 20 MG DELAYED RELEASE TAB PO SCH (09:00)
[2018-01-06] MEDS ORDERED: MULTIVITAMIN TAB PO SCH (09:00)
[2018-01-06] MEDS ORDERED: NON-FORMULARY DRUG (Lisinopril-Hctz 1 TAB) PO SCH (09:00)
[2018-01-06] MEDS: BUDESONIDE-FORMOTEROL 160/4.5 MCG INHALER INH SCH (09:35)
[2018-01-06] MEDS: METOPROLOL TARTRATE 25 MG TAB PO SCH (09:35)
--- NOTE | 2018-01-06 19:51 | EKG ---
Date Performed: 01/06/2018 Time Performed: 06:25:00 PTAGE: 82 years EKG: Sinus rhythm Possible inferior infarct - age undetermined Ant/septal and lateral T wave changes may be due to isha cardial ischemia Abnormal ECG PREVIOUS TRACING : 01/05/2018 18.44 Since the prior tracing, there has been no significant lester DOCTOR: Nette De La Rosa Interpretating Date/Time 01/06/2018 19:49:04
== END 2018-01-06 09:59 | disposition home or self-care (01) ==
LOC: HDOC 10:41 → HDIC 10:41 → HCPC 17:49 → HDOC 01-06 09:59
PROVIDERS: ATTEND Internal Medicine Interventional Cardiology
DX: I25.110 Atherosclerotic heart disease of native coronary artery with unstable angina pectoris (principal); I51.7 Cardiomegaly; I71.4 Abdominal aortic aneurysm, without rupture; E78.5 Hyperlipidemia, unspecified; J44.9 Chronic obstructive pulmonary disease, unspecified; Z79.82 Long term (current) use of aspirin
CPT/HCPCS: 80048; 80061; 82550; 82552; 85002; 85025; 85610; 85730; 92928; 93005; 93458; 99152; 99153; C1725; C1760; C1769; C1874; C1887; C1893; G0269; J2250; J3010; Q9967